=== PATIENT | female | born 1980 | race Caucasian/White ===

== ENCOUNTER 2021-02-11 09:02 | Inpatient (IN) | payer MEDICAID ==
[~2021-02-11 09:02] MED LIST: CHECK SCOPOLAMINE PATCH DAILY TOP SCH; Dexamethasone 4 MG/ML SDV ONE; Glycopyrrolate 0.2 MG/ML 5 ML MDV ONE; Meropenem 500 MG SDV ONE; Neostigmine Methylsulfate 1 MG/ML 5 ML Syringe ONE; Ondansetron 4 MG/2 ML SDV ONE; Propofol 200 MG/20 ML SDV ONE; Rocuronium 50 MG/5 ML Vial ONE; Succinylcholine 200 MG/10 ML MDV ONE; fentaNYL 250 MCG/5 ML SDV ONE
[2021-02-11] MEDS ORDERED: Celecoxib 200 MG Cap PO ONE (09:15)
[2021-02-11] MEDS ORDERED: Scopolamine 1.5 MG Transdermal Patch TOP SCH (09:15)
[2021-02-11] MEDS ORDERED: Acetaminophen 500 MG Tab PO ONE (09:15)
[2021-02-11] MEDS ORDERED: Dextrose 5%-Lactated Ringers 1,000 ML IV SCH (09:30)
[2021-02-11] MEDS ORDERED: Naloxone 0.4 MG/ML SDV IVPUSH PRN (10:07)
[2021-02-11] MEDS ORDERED: cefOXitin 2 GM in Sodium Chloride 0.9% 50 ML IV ONE (10:30)
[2021-02-11] MEDS ORDERED: Magnesium Sulfate 2.8 GM in Sodium Chloride 0.9% 100 ML IV SCH (10:30)
[2021-02-11] MEDS ORDERED: Ketamine 50 MG in Sodium Chloride 0.9% 49.5 ML IV SCH (10:30)
[2021-02-11] MEDS ORDERED: Ketamine 500 MG/5 ML MDV IV SCH (10:30)
[2021-02-11] MEDS ORDERED: Magnesium Sulfate 4.7 GM in Sodium Chloride 0.9% 250 ML IV ONE (10:45)
[2021-02-11] MEDS ORDERED: Naloxone 0.4 MG/ML SDV IV PRN (11:00)
[2021-02-11] MEDS ORDERED: fentaNYL 250 MCG/5 ML SDV ONE (11:56)
[2021-02-11] MEDS: HYDROmorphone/Normal Saline 15 MG/30 ML PCA IV PRN (12:13)
[2021-02-11] MEDS ORDERED: Cyclobenzaprine 10 MG Tab PO PRN (14:53)
[2021-02-11] MEDS ORDERED: Labetalol 20 MG/4 ML Syringe IVPUSH PRN (15:00)
[2021-02-11] MEDS ORDERED: diphenhydrAMINE 50 MG/ML SDV IVPUSH PRN (15:00)
[2021-02-11] MEDS ORDERED: Calcium Gluconate 10% 1 GM/10 ML SDV IVPUSH PRN (15:00)
[2021-02-11] MEDS ORDERED: Metoclopramide 10 MG/2 ML SDV IVPUSH PRN (15:00)
[2021-02-11] MEDS ORDERED: hydrOXYzine HCL 100 MG/2 ML SDV IM PRN (15:00)
[2021-02-11] MEDS ORDERED: Acetaminophen 500 MG Tab PO PRN (15:00)
[2021-02-11] MEDS ORDERED: Ondansetron 4 MG/2 ML SDV IVPUSH PRN (15:00)
[2021-02-11] MEDS ORDERED: Pantoprazole 40 MG Vial IVPUSH SCH (16:00)
[2021-02-11] MEDS: Sodium Ferric Gluconate Cmplex 250 MG in Sodium Chloride 0.9% 100 ML IV SCH (16:09)
[2021-02-11] MEDS: Acetaminophen 500 MG Tab PO SCH (16:09)
[2021-02-11] MEDS: Dextrose 5%-Lactated Ringers 1,000 ML IV SCH (17:04)
[2021-02-11] MEDS: cefOXitin 2 GM in Sodium Chloride 0.9% 50 ML IV SCH (17:09)
[2021-02-11] MEDS: Heparin Sodium 5,000 Units/ML Vial SUBCUT SCH (19:34)
[2021-02-11] MEDS ORDERED: MVI, Adult with Vitamin K 10 ML, Thiamine 200 MG, Zinc/Copper/Manganese/Selenium 1 ML i... IV SCH ×4 (20:00)
[2021-02-12] MEDS: cefOXitin 2 GM in Sodium Chloride 0.9% 50 ML IV SCH ×4 (00:18→18:25)
[2021-02-12] MEDS: Acetaminophen 500 MG Tab PO SCH ×3 (00:18→15:59)
[2021-02-12] MEDS: Dextrose 5%-Lactated Ringers 1,000 ML IV SCH (02:07)
[2021-02-12] MEDS ORDERED: Iopamidol 612 MG/ML 50 ML SDV PO STA (03:25)
[2021-02-12] MEDS ORDERED: methylPREDNISolone Sodium Succinate 125 MG/2 ML SDV IVPUSH ONE (03:30)
[2021-02-12] MEDS ORDERED: Dextrose 5%-Lactated Ringers 1,000 ML IV SCH (07:45)
[2021-02-12] MEDS: Heparin Sodium 5,000 Units/ML Vial SUBCUT SCH ×2 (08:10→19:56)
[2021-02-12] MEDS: Celecoxib 200 MG Cap PO SCH ×2 (08:15→20:39)
[2021-02-12] MEDS ORDERED: SCOPOLAMINE PATCH CHECK TOP SCH (09:00)
--- NOTE | 2021-02-12 09:12 | CR ---
[facility] HISTORY: Postbariatric surgery revision FINDINGS: Patient swallowed water-soluble contrast. Upright views of the abdomen show no evidence of extravasation or obstruction. There is a surgical drain in the left upper quadrant IMPRESSION: Status post bariatric surgery with revision No extravasation or obstruction seen
[2021-02-12] MEDS: Docusate Sodium 100 MG Cap PO SCH ×2 (09:44→20:39)
[2021-02-12] MEDS: Bisacodyl 5 MG Tab PO SCH ×2 (09:44→20:38)
[2021-02-12] MEDS: HYDROmorphone/Normal Saline 15 MG/30 ML PCA IV PRN (13:04)
[2021-02-12] MEDS: Sodium Ferric Gluconate Cmplex 250 MG in Sodium Chloride 0.9% 100 ML IV SCH (15:57)
[2021-02-12] MEDS: Pantoprazole 40 MG Tab.CR PO SCH (15:59)
[2021-02-12] MEDS: oxyCODONE 5 MG Tab PO PRN (19:56)
[2021-02-12] MEDS ORDERED: MVI, Adult with Vitamin K 10 ML, Thiamine 200 MG, Zinc/Copper/Manganese/Selenium 1 ML i... IV SCH ×4 (20:00)
[2021-02-13] MEDS: Acetaminophen 500 MG Tab PO SCH ×3 (00:10→16:40)
[2021-02-13] MEDS: cefOXitin 2 GM in Sodium Chloride 0.9% 50 ML IV SCH (00:10)
[2021-02-13] MEDS: oxyCODONE 5 MG Tab PO PRN ×5 (00:10→19:50)
[2021-02-13] MEDS ORDERED: Magnesium Hydroxide 400 MG/5 ML Susp 30 ML Cup PO PRN (07:46)
[2021-02-13] MEDS ORDERED: hydrOXYzine HCl 25 MG Tab PO PRN (08:01)
--- NOTE | 2021-02-13 08:04 | PCM.EKG ---
#1 Interpretation EKG Date: 02/11/21 Time: 09:23 Rhythm: NSR Rate (Beats/Min): 68 [place]: Normal P-Wave: Present QRS: Normal ST-T: Normal QT: Normal Comparison: NA - No Prior EKG
[2021-02-13] MEDS: Pantoprazole 40 MG Tab.CR PO SCH (08:16)
[2021-02-13] MEDS: Heparin Sodium 5,000 Units/ML Vial SUBCUT SCH ×2 (08:18→20:52)
[2021-02-13] MEDS: Celecoxib 200 MG Cap PO SCH ×2 (08:48→20:52)
[2021-02-13] MEDS: Docusate Sodium 100 MG Cap PO SCH ×2 (08:48→20:52)
[2021-02-13] MEDS: Bisacodyl 5 MG Tab PO SCH ×2 (08:50→20:52)
[2021-02-13] MEDS: Magnesium Hydroxide 400 MG/5 ML Susp 30 ML Cup PO SCH ×2 (08:56→20:52)
[2021-02-13] MEDS ORDERED: Cyanocobalamin (Vitamin B12) 1,000 MCG/ML SDV IM ONE (09:00)
[2021-02-13] MEDS ORDERED: oxyCODONE 5 MG Tab ONE (19:49)
[2021-02-14] MEDS ORDERED: oxyCODONE 5 MG Tab ONE ×2 (00:28→04:31)
[2021-02-14] MEDS: oxyCODONE 5 MG Tab PO PRN ×2 (00:29→04:42)
[2021-02-14] MEDS: Acetaminophen 500 MG Tab PO SCH ×2 (00:30→07:45)
--- NOTE | 2021-02-14 02:32 | PN ---
DATE OF SERVICE: 02/13/2021 SUBJECTIVE: Tatianna is postoperative day #2. She reports she is having quite a bit of pain and does not feel like she is ready to go home today. Vital signs have been stable. Oral intake 925, urine output 1650. FARZANA drain put out 30 mL. REVIEW OF SYSTEMS: Remainder of review of systems negative for any pertinent positives and negatives. OBJECTIVE: GENERAL: Tatianna is a 40-year-old female. VITAL SIGNS: TPR is 97.5, 96, 16, blood pressure 127/76. HEENT: Negative. NECK: Supple. HEART: Regular rate and rhythm. LUNGS: Clear. ABDOMEN: Negative. Aquacel dressings on. EXTREMITIES: Reveal some peripheral edema. ASSESSMENT: Exploratory laparotomy with: 1. Repair of paraesophageal hernia with mesh. 2. Small-bowel resection. 3. Placement of Interceed mesh x2. POSTOPERATIVE DIAGNOSES: Small bowel obstruction secondary to: 1. Large paraesophageal hernia containing incarcerated small bowel. 2. 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 3. Date of procedure: 02/11/2021. Surgeon: Ross Hightower MD. PLAN: 1. Milk of Magnesia 30 mL b.i.d. scheduled. 2. Atarax 25 mg q.4 hours p.r.n. additional pain not covered by Tylenol and oxycodone. 3. Continue to use incentive spirometer. 4. We will evaluate p.r.n. or in a.m. Jasmyn Dominguez PA-C /[id number]
[2021-02-14] MEDS: Pantoprazole 40 MG Tab.CR PO SCH (07:42)
[2021-02-14] MEDS: Heparin Sodium 5,000 Units/ML Vial SUBCUT SCH (07:44)
[2021-02-14] MEDS: Celecoxib 200 MG Cap PO SCH (08:21)
[2021-02-14] MEDS: Magnesium Hydroxide 400 MG/5 ML Susp 30 ML Cup PO SCH (08:22)
[2021-02-14] MEDS: Bisacodyl 5 MG Tab PO SCH (08:22)
[2021-02-14] MEDS: Docusate Sodium 100 MG Cap PO SCH (08:22)
--- NOTE | 2021-02-14 09:34 | DISCH ---
ADMISSION DIAGNOSES: 1. Abdominal pain. 2. Large paraesophageal diaphragmatic hernia. 3. Unspecified surgical malabsorption. 4. B12 deficiency. DISCHARGE DIAGNOSES: Exploratory laparotomy with: 1. Repair of paraesophageal hernia with mesh. 2. Small-bowel resection. 3. Placement of Interceed mesh x2. POSTOPERATIVE DIAGNOSES: Small bowel obstruction secondary to: 1. Large paraesophageal hernia containing incarcerated small bowel. 2. Stricture at the Jewels limb entering at the jejunojejunostomy. 3. Date of procedure: 02/11/2021. Surgeon: Ross Hightower MD. HISTORY: Tatianna Moreau is a 40-year-old female with 1 year history of nausea and vomiting with inability to eat. After preoperative evaluation and discussion of possible risks and possible complications, she wished to proceed with surgical procedure. HOSPITAL COURSE: Tatianna had her surgery on 02/11/2021. She had no operative complications. On postoperative day #1, her IV was decreased to 100 mL per hour, Benton was discontinued, and she was started on a step 2 gastric bypass diet. On postoperative day #2, she was changed to oral pain medication, given bowel stimulation, did not have a bowel movement. Vital signs did remain stable and she remained to be in quite a bit of pain. She was discharged, but felt better staying because of the pain. Tatianna was ready to be discharged on 02/14/2021. She received adequate dietary instruction. Vital signs stable. Pain was better managed. Oral intake was 810 and urine output 1650. PHYSICAL EXAMINATION: GENERAL: Tatianna Moreau is a 40-year-old female, alert and orientated. VITAL SIGNS: Height 5 feet 3 inches, weight is 211 pounds, BMI is 37.4. TPR is 97.7, 85, 16, blood pressure 134/81. HEENT: Negative. NECK: Supple. HEART: Regular rate and rhythm. LUNGS: Clear. ABDOMEN: Aquacel dressing is on. Abdominal binder is on. EXTREMITIES: Without peripheral edema. DISPOSITION: Discharged to home. CONDITION: Stable and improving. FOLLOWUP APPOINTMENT: With Jasmyn Dominguez PA-C, 02/24/2021, at 10 a.m. HOME MEDICATIONS: 1. Celebrex 200 mg p.o. b.i.d., #28. 2. Oxycodone 5 mg one q.6 hours p.r.n. pain, #28. 3. She is to resume home medications: a. Seroquel 25 to 50 mg p.o. bedtime p.r.n. b. Zofran ODT 4 mg q.4 hours p.r.n. nausea. c. Hyoscyamine sulfate/Levsin 0.125 mg sublingual every 4 hours p.r.n. d. Levonorgestrel/Vi, continue. e. Methocarbamol 1000 mg p.o. q.i.d. p.r.n. f. Tylenol 1000 mg every 8 hours scheduled. DIET: Step 3 gastric bypass diet. Drink 8 to 10 glasses of water a day. ACTIVITY: No lifting greater than 10 pounds for 6 weeks. OTHER ACTIVITY: Walk 6 times daily inside your house. Driving: Do not drive for 1 week. Shower/bathing: May shower. Keep operative site clean and dry. DISCHARGE INSTRUCTIONS: Take off Aquacel dressing on 02/16/2021. Wear abdominal binder for 6 weeks if tolerated. Notify provider if any fever, increased pain, swelling, redness, drainage, nausea, or vomiting. Use incentive spirometer 10 times every hour while awake for 1 week. /[id number]
--- NOTE | 2021-02-18 14:50 | PN ---
DATE OF SERVICE: 02/12/2021 The patient has been afebrile with stable vital signs, but had some double vision likely related to the scopolamine patch. Otherwise, no complaints. Her upper GI x-ray looks very good. We will give her some bowel stimulation today as she still has quite a bit of retained barium within the colon from last week's x-ray. Otherwise, back down on the IV rate. Her albumin is low and she has quite a bit of leg edema chronically. We will give her some albumin both today and tomorrow and then switch over to oral pain medicine most likely tomorrow. Ross Hightower MD /[id number]
--- NOTE | 2021-02-24 13:12 | OR ---
DATE OF PROCEDURE: 02/11/2021 SURGEON: Ross Hightower MD PREOPERATIVE DIAGNOSIS: Partial small bowel obstruction secondary to large paraesophageal diaphragmatic hernia containing incarcerated small bowel. POSTOPERATIVE DIAGNOSES: 1. Partial small bowel obstruction secondary to large paraesophageal diaphragmatic hernia containing incarcerated small bowel. 2. Stricture at Jewels limb of jejunojejunostomy. OPERATIVE PROCEDURE: Exploratory laparotomy with: 1. Repair of paraesophageal diaphragmatic hernia with mesh (40475). 2. Small bowel resection (92245). 3. Placement of Interceed mesh x2 to limit recurrent adhesion formation between pelvic and abdominal wall and underlying viscera (74021). ANESTHESIA: General. CLOTH BIN PACKER: Jasmyn Dominguez PA-C. INDICATIONS FOR PROCEDURE: This is a 40-year-old status post previous Jewels-en-Y gastric bypass, presenting with some ongoing problems with nausea, vomiting, and early satiety. Workup originally showed an upper GI x-ray where the patient had small bowel loops located within a paraesophageal hernia. They were partially obstructed accounting for the patient's symptoms. Plan at this point is to proceed with open laparotomy, repair of the hernia with small bowel resection or revision as necessary. Potential risks including bleeding, infection, injury to underlying viscera, problem with the hernia recurring, as well as possible leaks from any GI tract closures were all gone over and the patient wishes to proceed. DETAILS OF PROCEDURE: The patient was taken to the operating room and placed in a supine position. After general endotracheal anesthesia was induced, Benton catheter was inserted, and the abdomen prepped and draped. A midline incision was made from the xiphoid down to just above the umbilicus, carried down through the full-thickness abdominal wall. Upon entering the peritoneal cavity, some adhesions around the area of the hernia were encountered. The liver was retracted superiorly after dissection of some adhesions from liver and the area of the Jewels limb and diaphragmatic hernia. Once this was accomplished, the hernia sac was incised along the edges of the diaphragm, which allowed reduction of the small bowel out of the incarcerated hernia. The sac was then dissected downward and resected by means of electrocautery and surgical sai. The diaphragmatic hernia was then repaired with a series of 0 Ethibond sutures reinforced with PTFE pledgets. The hernia was then further reinforced with a Phasix ST mesh placed posterior to the distal esophagus and then in a horseshoe configuration along the repair of the diaphragmatic hernia. It was fixed in position with titanium tacking screws. At this point, the Jewels limb was examined. The patient was noted to have some stricturing where the Jewels limb entered the jejunojejunostomy. This section of the small bowel was then divided and the small section was resected with the bowel being divided with ZOLTAN sai as was the underlying mesentery. The Jewels-en-Y anatomy was then reconstructed with a side-to- side enteroenterostomy with internal firing of the Endo-ZOLTAN 60 mm stapler. Common opening was closed transversely with the same stapler. Angles anastomosed and mesenteric defect approximated with some 3-0 Vicryl stitch and 2-0 silk stitch respectively. The small bowel limbs were altered somewhat to facilitate some additional weight loss. Biliopancreatic limb was increased by 120 cm. Final lengths in this case showed the biliopancreatic limb of 160 cm, Jewels limb of 70 cm, and common limb of 380 cm. At this point, the abdomen was irrigated with meropenem-containing saline solution. No further problems were noted. Interceed mesh was placed underneath the incision and from there down towards the pelvis to limit recurrent adhesion formation between pelvic and abdominal wall and underlying viscera. Midline fascia was approximated with #2 Vicryl stitch, subcutaneous tissue with 3-0 Vicryl stitch, and subdermal tissue with 4-0 Vicryl stitch, and the skin with sai. Prior to closure, bilateral transversus abdominis plane blocks had been placed and the patient was taken to the recovery room in satisfactory condition. Physician assistant surveyor, Jasmyn Dominguez, played an essential role in assisting in this case, helping to position the patient, retract structures as needed, as well as suturing and cutting sutures when indicated. Her presence improved patient safety and decreased operative time. Ross Hightower MD /[id number]
== END 2021-02-14 10:59 | disposition home or self-care (01) | DRG 327 ==
LOC: JP.SDS 09:02 → JP.SDSSCHI 09:03 → JP.ICU 14:40 → EDSTATUS 15:15
PROVIDERS: ADMIT Surgery; ATTEND Surgery
PROC: 0BUT0JZ Supplement Diaphragm with Synthetic Substitute, Open Approach (ICD-10-PCS; principal; 2021-02-11)
PROC: 0DB80ZZ Excision of Small Intestine, Open Approach (ICD-10-PCS; 2021-02-11)
PROC: 3E0M05Z Introduction of Adhesion Barrier into Peritoneal Cavity, Open Approach (ICD-10-PCS; 2021-02-11)
DX: K95.89 Other complications of other bariatric procedure (principal); K44.0 Diaphragmatic hernia with obstruction, without gangrene; K91.2 Postsurgical malabsorption, not elsewhere classified; K56.600 Partial intestinal obstruction, unspecified as to cause; E53.8 Deficiency of other specified B group vitamins; E78.5 Hyperlipidemia, unspecified; E66.9 Obesity, unspecified; G47.30 Sleep apnea, unspecified; E55.9 Vitamin D deficiency, unspecified; Z90.49 Acquired absence of other specified parts of digestive tract; Z79.891 Long term (current) use of opiate analgesic; Z98.890 Other specified postprocedural states; Z98.84 Bariatric surgery status; Z91.013 Allergy to seafood; Z88.0 Allergy status to penicillin; Y83.8 Other surgical procedures as the cause of abnormal reaction of the patient, or of later complication, without mention of misadventure at the time of the procedure; Z68.37 Body mass index [BMI] 37.0-37.9, adult
CPT/HCPCS: 36415; 74240; 74240-26; 80053; 82947; 83735; 84100; 85025; 86850; 86900; 86901; 88302; 88307; 93005; 94762; A9270-GY; C1781; C9113; J0171; J0330; J0694; J1100; J1170; J1644; J2185; J2405; J2704; J2710; J2795; J2916; J2930; J3010; J3410; J3411; J3420; J3475; J3490; J7050; J7121; P9047; Q9967